=== PATIENT | female | born 1965 | race Caucasian/White ===

== ENCOUNTER 2023-11-06 14:33 | Emergency (ER) | payer BC, SELFPAY ==
[2023-11-06 14:36] VITALS: BP 166/94
--- NOTE | 2023-11-06 15:12 | ED.GENMED ---
History of Present Illness
General
Chief Complaint: Rectal Bleeding
Source: patient
Exam Limitations: none
Time Seen by Provider: 11/06/23 15:04
Nursing documentation reviewed up to this point in time: agreed with
History of Present Illness
History of Present Illness:
Patient without any significant past medical history, presents to ED secondary to lower abdominal cramping sensation starting yesterday afternoon, along with multiple loose bowel movements today, associated with bright red blood. Yesterday, after
bowel movements, patient only noticed blood when wiping. Denies fever or chills. Denies nausea or vomiting. Denies trauma. Denies dizziness or weakness. Denies previous history of similar symptoms. Patient does not take any blood thinning
medications.
Review of Systems
Review of Systems
Allergies reviewed?: Yes
All Other Systems: ROS reviewed and negative except as documented in HPI and ROS
Constitutional: Reports no symptoms; Denies fever
EENT: Reports no symptoms
Respiratory: Reports no symptoms; Denies trouble breathing
Cardiac: Reports no symptoms
ABD/GI: Reports abdominal pain, nausea, vomiting, diarrhea and bloody stools
Musculoskeletal: Reports no symptoms
Skin: Reports no symptoms
Neurological: Reports no symptoms
Phy Exam
Physical Exam
Physical Exam:
Physical Exam
General: no apparent distress, not acutely ill. afebrile
Head: nc/at. eomi
Neck: supple. normal range of motion
Heart: s1/s2 regular rate and rhythm, no murmur. equal radial pulses.
Lungs: no acute respiratory distress. clear bilaterally
Abdomen: normal bowel sounds. not tender.
Neuro: alert and oriented. no focal neurological deficits
Skin: no rash
Psychiatric: well kept. interactive and cooperative
Extremities: no edema. no calf tenderness.
Course
Orders/Labs/Results
Orders:
Orders
11/06/23 15:11
CT Abd/pelvis W Iv Cont Urgent
Comment:
Reason For Exam: LLQ pain with rectal bleeding
11/06/23 15:12
Ketorolac [Toradol] 15 mg IV NOW STA
11/06/23 15:15
0.9% Sodium Chloride 500 ml [Nss] 500 ml IV BOLUS
11/06/23 15:44
Basic Metabolic Panel Urgent
Complete Blood Count/With Diff Urgent
Urinalysis Reflex To Culture Urgent
Date Specimen was Collected: 11/06/23
Time Specimen was Collected: 15:20
Abnormal Lab Results
11/06/23
15:44
WBC 11.9 H 10^3/uL
(4.8-10.8)
MCH 32.0 H pg
(27.0-31.0)
Absolute Neuts (auto) 7.3 H 10^3/uL
(1.4-6.5)
Absolute Monos (auto) 1.0 H 10^3/uL
(0.1-0.6)
Glucose 108 H mg/dl
(70-99)
11/06/23 15:44
11/06/23 15:44
Vital Signs
Initial and Last Documented VS:
Initial Vital Signs
Temp Pulse Resp BP Pulse Ox
98.2 F 87 16 166/94 96
11/06/23 14:36 11/06/23 14:36 11/06/23 14:36 11/06/23 14:36 11/06/23 14:36
Last Documented Vital Signs
Temp Pulse Resp BP Pulse Ox
98.2 F 87 16 166/94 96
11/06/23 14:36 11/06/23 14:36 11/06/23 14:36 11/06/23 14:36 11/06/23 14:36
MDM/Problems Addressed
MDM/Problems Addressed:
Patient remains afebrile and hemodynamically stable. CT report, i.e. colitis, discussed with patient. As her symptoms started shortly after attending a [employer], it is possible that her acute colitis findings may be inflammatory change secondary to
food reaction versus viral infection versus bacterial infection. As such, after discussion, decision made to provide patient with a prescription for Augmentin, to be started after 24 hours, if her symptoms persist. Advised to return to ED with
worsening symptoms, i.e. fever/worsening pain/vomiting. Patient expresses understanding, at time of discharge, to the care of her spouse.
*Critical Care Note
Total Time (30-74mins, 75-104mins- exclusive of procedures): Not Applicable
ED Attending Note
-
Portions of this chart may have been created with voice recognition software.� Occasional wrong word or��sound alike� substitutions may have occurred due to the inherent limitations of voice recognition software.
Discharge Plan
Departure
Patient Disposition: Home (Routine Discharge)
Date of Disposition: 11/06/23
Time of Disposition: 17:07
Patient with high blood pressure during this ER visit?: Yes
Condition: Good
Discharge Problem:
Colitis
Instructions: Colitis (DC)
Prescriptions:
New
amoxicillin-pot clavulanate 875-125 mg tablet
1 tab PO Q12H Qty: 20 0RF
Referrals:
José Miguel Hill MD [Active] -
Gilda Dodge MD [Family Provider] -
Activity Restrictions/Additional Instructions:
As discussed, please follow-up with your primary care physician and/or referred GI physician for further evaluation and treatment. If your symptoms do not improve over the next 24 hours, please take the antibiotics that has been prescribed for you.
Interventions
Interventions:
*Risk Screen - Suicide Last Done: 11/06/23 14:36
*General Assessment Last Done: 11/06/23 14:36
*Neglect/Abuse Screening Last Done: 11/06/23 14:36
Discharge Date and Time
Print Language: [id number]
[2023-11-06 15:58] LABS: % Basophils 0.3 % (0-2); % Eosinophils 0.7 % (0-6); % Immature Granulocytes 0.3 % (0-0.5); % Lymphocytes 28.7 % (20.5-51.1); % Monocytes 8.7 % (1.7-9.3); % Neutrophils 61.3 % (42.2-75.2); Absolute Eosinophils 0.1 10^3/uL (0-0.7); Absolute Lymphocytes 3.4 10^3/uL (1.2-3.4); Absolute Neutrophils 7.3 10^3/uL (1.4-6.5); Hematocrit 41.6 % (37.0-47.0); Hemoglobin 15.1 g/dL (12.0-16.0); Mean Corp Hgb Conc. 36.3 g/dL (33.0-37.0); Mean Corpuscular Volume 88.1 fL (81.0-99.0); Mean Platelet Volume 9.3 fL (7.4-10.4); Nucleated Red Blood Cells % 0 %; Platelet Count 282 10^3/uL (130-400); Red Blood Cell Count 4.72 10^6/uL (4.20-5.40); Red Cell Dist. Width 11.9 % (11.5-14.5); Urine Albumin Negative (Neg - Trace); Urine Bilirubin Negative (Negative); Urine Character Clear (Clear); Urine Color Straw; Urine Glucose Negative (Negative); Urine Ketone Negative (Negative); Urine Leukocyte Negative (Negative); Urine Nitrite Negative (Negative); Urine Occult Blood Negative (Negative); Urine Urobilinogen Negative (Neg - 1+); White Blood Cell Count 11.9 10^3/uL (4.8-10.8)
[2023-11-06] MEDS: TORADOL 15 MG IV (16:09)
[2023-11-06] MEDS: NSS 500 IV (16:10)
[2023-11-06 16:14] LABS: Blood Urea Nitrogen 15 mg/dl (7-17); Calcium 9.7 mg/dl (8.4-10.2); Carbon Dioxide 28 mmol/L (22-30); Chloride 103 mmol/L (98-107); Glucose 108 mg/dl (70-99); Potassium 4.1 mmol/L (3.5-5.1); Sodium 142 mmol/L (135-145); eGFR > 60.00
[2023-11-06 17:35] VITALS: BP 148/78
== END 2023-11-06 17:45 | disposition home or self-care (01) ==
LOC: EMR 14:33
PROVIDERS: EMERGENCY PHYSICIAN Emergency Medicine; FAMILY PHYSICIAN Family Medicine
DX: K52.9 Noninfective gastroenteritis and colitis, unspecified (principal)
CPT/HCPCS: 99284; 74177; 80048; 81003; 85025; Q9967

== ENCOUNTER 2024-06-14 06:29 | Day surgery (SDC) | payer BC, SELFPAY | END 2024-06-14 15:32 | disposition home or self-care (01) | LOC: GI 06:29 | PROVIDERS: ATTENDING PHYSICIAN Internal Medicine Gastroenterology | DX: K57.30 Diverticulosis of large intestine without perforation or abscess without bleeding (principal); K64.8 Other hemorrhoids; R93.3 Abnormal findings on diagnostic imaging of other parts of digestive tract; K22.89 Other specified disease of esophagus; K44.9 Diaphragmatic hernia without obstruction or gangrene; K31.7 Polyp of stomach and duodenum; K31.89 Other diseases of stomach and duodenum; R13.10 Dysphagia, unspecified | CPT/HCPCS: 45378; 43239; 88305; 88342 ==